=== PATIENT | female | born 1955 | race African-American/Black ===

== ENCOUNTER → 2017-01-17 | Outpatient (CLI) | payer MEDICARE, OTHER ==
[~2017-01-17] MED LIST: ALLO300T2 PO; AMLO10TA55 PO; ASPI-825 PO; FLUT16H NASAL; LORA-702 PO; METF1000 PO; RANI150T7 PO; SIMV10TA6 PO; SITA100 PO; SPIR25TA PO; VITA80008 PO; VITRON-C PO
== END | disposition home or self-care (01) ==
LOC: RADPV 14:11
PROVIDERS: ATTEND Legal Medicine
DX: M17.11 Unilateral primary osteoarthritis, right knee (principal)

== ENCOUNTER 2017-03-12 13:32 | Emergency (ER) | payer MEDICARE, OTHER ==
[~2017-03-12] VITALS: Ht 154.9 cm; Wt 95.5 kg
[2017-03-12 13:51] LABS: GLUCOSE,POINT OF CARE 81 MG/DL (70-110)
[2017-03-12] MEDS ORDERED: METF500T4 PO (14:38)
[2017-03-12] MEDS ORDERED: SIMV-261 PO (14:38)
[2017-03-12] MEDS ORDERED: ACETAMINOPHEN 325 MG TABLET PO ONE (14:45)
[2017-03-12 15:40] VITALS: BP 128/80
== END 2017-03-12 16:13 | disposition home or self-care (01) ==
LOC: EMS 13:34
DX: J40 Bronchitis, not specified as acute or chronic (principal); H92.03 Otalgia, bilateral; E11.9 Type 2 diabetes mellitus without complications; I10 Essential (primary) hypertension; K21.9 Gastro-esophageal reflux disease without esophagitis; Z88.1 Allergy status to other antibiotic agents; Z79.82 Long term (current) use of aspirin; Z87.891 Personal history of nicotine dependence
CPT/HCPCS: 71020; 82962; 99284

== ENCOUNTER 2017-04-11 20:46 | Emergency (ER) | payer MEDICARE, OTHER ==
[~2017-04-11] VITALS: Ht 154.9 cm; Wt 86.0 kg
[~2017-04-11 20:46] MED LIST changes: +METF500T4 PO; +SIMV-261 PO; -SIMV10TA6 PO
[2017-04-11 21:22] LABS: GLUCOSE,POINT OF CARE 141 MG/DL (70-110)
[2017-04-11] MEDS ORDERED: MORPHINE SULFATE 4 MG/ML SYRINGE IM ONE (22:15)
[2017-04-11] MEDS ORDERED: METHOCARBAMOL 500 MG TABLET PO ONE (22:15)
[2017-04-11 22:36] VITALS: BP 126/74
== END 2017-04-11 23:01 | disposition home or self-care (01) ==
LOC: EMS 20:47
DX: S29.012A Strain of muscle and tendon of back wall of thorax, initial encounter (principal); E11.9 Type 2 diabetes mellitus without complications; I10 Essential (primary) hypertension; K21.9 Gastro-esophageal reflux disease without esophagitis; Z88.2 Allergy status to sulfonamides; Z79.82 Long term (current) use of aspirin; X58.XXXA Exposure to other specified factors, initial encounter; Y93.89 Activity, other specified; Y92.89 Other specified places as the place of occurrence of the external cause; Y99.8 Other external cause status
CPT/HCPCS: 82962; 84703; 96372; 99283; J2270

== ENCOUNTER 2017-05-09 01:58 | Emergency (ER) | payer MEDICARE, OTHER ==
[~2017-05-09] VITALS: Ht 154.9 cm; Wt 85.0 kg
[~2017-05-09 01:58] MED LIST changes: -METF500T4 PO
[2017-05-09 02:07] VITALS: BP 145/84
[2017-05-09 02:17] LABS: GLUCOSE,POINT OF CARE 142 MG/DL (70-110)
[2017-05-09] MEDS ORDERED: DiphenhydrAMINE HCL 50 MG CAPSULE PO ONE (04:00)
== END 2017-05-09 04:11 | disposition home or self-care (01) ==
LOC: EMS 01:59
DX: S80.861A Insect bite (nonvenomous), right lower leg, initial encounter (principal); S80.862A Insect bite (nonvenomous), left lower leg, initial encounter; E11.9 Type 2 diabetes mellitus without complications; I10 Essential (primary) hypertension; K21.9 Gastro-esophageal reflux disease without esophagitis; Z87.891 Personal history of nicotine dependence; Z88.1 Allergy status to other antibiotic agents; W57.XXXA Bitten or stung by nonvenomous insect and other nonvenomous arthropods, initial encounter; Y93.89 Activity, other specified; Y92.89 Other specified places as the place of occurrence of the external cause; Y99.8 Other external cause status
CPT/HCPCS: 82962; 99282

== ENCOUNTER 2017-06-03 14:32 | Emergency (ER) | payer MEDICARE, OTHER ==
[~2017-06-03] VITALS: Ht 154.9 cm; Wt 85.0 kg
[~2017-06-03 14:32] MED LIST changes: +BRIM5DRO10 OU; +LATA2.5D2 OU
[2017-06-03] MEDS ORDERED: PRED20 PO (14:45)
[2017-06-03] MEDS ORDERED: DIPH12.540 PO (14:45)
[2017-06-03] MEDS ORDERED: DIPH25 PO (15:35)
[2017-06-03] MEDS ORDERED: DiphenhydrAMINE HCL 50 MG/ML VIAL IM ONE (15:45)
[2017-06-03 16:47] VITALS: BP 129/75
== END 2017-06-03 16:49 | disposition home or self-care (01) ==
LOC: EMS 14:33
DX: E11.9 Type 2 diabetes mellitus without complications (principal); K21.9 Gastro-esophageal reflux disease without esophagitis; I10 Essential (primary) hypertension; T78.49XA Other allergy, initial encounter; X58.XXXA Exposure to other specified factors, initial encounter; Z87.891 Personal history of nicotine dependence; Z79.82 Long term (current) use of aspirin; Z88.2 Allergy status to sulfonamides
CPT/HCPCS: 96372; 99283; J1200

== ENCOUNTER → 2017-07-23 | Outpatient (CLI) | payer MEDICARE, OTHER ==
[~2017-07-23] MED LIST changes: +DIPH25 PO; +PRED20 PO
== END | disposition home or self-care (01) ==
LOC: RADPV 09:08
PROVIDERS: ATTEND Legal Medicine
DX: M76.61 Achilles tendinitis, right leg (principal)

== ENCOUNTER → 2018-04-29 | Outpatient (CLI) | payer MEDICARE, OTHER | END | disposition home or self-care (01) | LOC: RADPV 08:00 | PROVIDERS: ATTEND Legal Medicine | DX: N83.201 Unspecified ovarian cyst, right side (principal); Z90.710 Acquired absence of both cervix and uterus; I10 Essential (primary) hypertension; E11.9 Type 2 diabetes mellitus without complications; K21.9 Gastro-esophageal reflux disease without esophagitis; Z79.82 Long term (current) use of aspirin; Z87.891 Personal history of nicotine dependence | CPT/HCPCS: 76700; 76856 ==

== ENCOUNTER 2018-12-19 23:00 | Emergency (ER) | payer MEDICARE, OTHER ==
[~2018-12-19] VITALS: Ht 154.9 cm; Wt 82.7 kg
[2018-12-19 23:18] LABS: GLUCOSE,POINT OF CARE 113 MG/DL (70-110)
[2018-12-19] MEDS ORDERED: SPIR50 PO (23:21)
[2018-12-20] MEDS ORDERED: IBUPROFEN 600 MG TABLET PO ONE (05:45)
[2018-12-20 06:39] VITALS: BP 124/86
== END 2018-12-20 06:47 | disposition home or self-care (01) ==
LOC: EMS 23:01
DX: S80.02XA Contusion of left knee, initial encounter (principal); E11.9 Type 2 diabetes mellitus without complications; I10 Essential (primary) hypertension; K21.9 Gastro-esophageal reflux disease without esophagitis; E78.00 Pure hypercholesterolemia, unspecified; Z87.891 Personal history of nicotine dependence; Z90.710 Acquired absence of both cervix and uterus; Z88.2 Allergy status to sulfonamides; Z79.84 Long term (current) use of oral hypoglycemic drugs; Z79.82 Long term (current) use of aspirin; W01.0XXA Fall on same level from slipping, tripping and stumbling without subsequent striking against object, initial encounter; Y93.89 Activity, other specified; Y92.89 Other specified places as the place of occurrence of the external cause; Y99.8 Other external cause status
CPT/HCPCS: 29530

== ENCOUNTER 2019-01-07 08:29 | Emergency (ER) | payer MEDICARE, OTHER ==
[~2019-01-07 08:29] MED LIST changes: -DIPH25 PO; -LORA-702 PO; -PRED20 PO; -SPIR25TA PO; +SPIR50 PO; -VITA80008 PO; -VITRON-C PO
== END 2019-01-07 08:42 | disposition left against medical advice (07) ==
LOC: EMS 08:32
DX: Z53.21 Procedure and treatment not carried out due to patient leaving prior to being seen by health care provider (principal)

== ENCOUNTER 2019-04-13 04:21 | Emergency (ER) | payer MEDICARE, OTHER ==
[~2019-04-13] VITALS: Ht 157.5 cm; Wt 81.8 kg
[2019-04-13] MEDS ORDERED: IPRAHFA IH (04:33)
[2019-04-13] MEDS ORDERED: ALBU8HFA NEB (04:33)
[2019-04-13 04:40] LABS: GLUCOSE,POINT OF CARE 108 MG/DL (70-110)
[2019-04-13] MEDS ORDERED: ACETAMINOPHEN 325 MG TABLET PO ONE (05:15)
[2019-04-13 05:55] VITALS: BP 128/69
== END 2019-04-13 06:02 | disposition home or self-care (01) ==
LOC: EMS 04:24
DX: S90.122A Contusion of left lesser toe(s) without damage to nail, initial encounter (principal); E11.9 Type 2 diabetes mellitus without complications; K21.9 Gastro-esophageal reflux disease without esophagitis; E78.00 Pure hypercholesterolemia, unspecified; I10 Essential (primary) hypertension; Z90.710 Acquired absence of both cervix and uterus; Z77.22 Contact with and (suspected) exposure to environmental tobacco smoke (acute) (chronic); Z79.84 Long term (current) use of oral hypoglycemic drugs; Z88.2 Allergy status to sulfonamides; Z79.82 Long term (current) use of aspirin; W22.8XXA Striking against or struck by other objects, initial encounter; Y93.89 Activity, other specified; Y92.89 Other specified places as the place of occurrence of the external cause; Y99.8 Other external cause status

== ENCOUNTER 2019-05-19 10:11 | Emergency (ER) | payer MEDICARE, OTHER ==
[~2019-05-19] VITALS: Ht 154.9 cm; Wt 81.8 kg
[~2019-05-19 10:11] MED LIST changes: +ALBU8HFA NEB; +IPRAHFA IH; -RANI150T7 PO
[2019-05-19 10:55] LABS: GLUCOSE,POINT OF CARE 187 MG/DL (70-110)
[2019-05-19 11:59] VITALS: BP 120/63
[2019-05-19] MEDS ORDERED: HYDROCODONE/ACETAMINOPHEN 5-325 MG TABLET PO ONE (12:00)
[2019-05-19] MEDS ORDERED: TraMADol HCL 50 MG TABLET PO ONE (12:15)
== END 2019-05-19 13:10 | disposition home or self-care (01) ==
LOC: EMS 10:13
DX: S76.312A Strain of muscle, fascia and tendon of the posterior muscle group at thigh level, left thigh, initial encounter (principal); I10 Essential (primary) hypertension; E78.00 Pure hypercholesterolemia, unspecified; E11.9 Type 2 diabetes mellitus without complications; K21.9 Gastro-esophageal reflux disease without esophagitis; Z87.891 Personal history of nicotine dependence; Z88.2 Allergy status to sulfonamides; Z79.82 Long term (current) use of aspirin; Z79.84 Long term (current) use of oral hypoglycemic drugs; Z79.899 Other long term (current) drug therapy; X50.9XXA Other and unspecified overexertion or strenuous movements or postures, initial encounter; Y93.89 Activity, other specified; Y92.89 Other specified places as the place of occurrence of the external cause; Y99.8 Other external cause status

== ENCOUNTER 2020-05-19 19:25 | Emergency (ER) | payer MEDICARE, OTHER ==
[~2020-05-19] VITALS: Ht 157.5 cm; Wt 80.9 kg
[2020-05-19] MEDS ORDERED: IPRAHFA IH (19:38)
[2020-05-19] MEDS ORDERED: LOSA50TA37 PO (19:38)
[2020-05-19 20:42] LABS: BASOPHILS % (AUTO) 0.9 % (0.0-2.0); EOSINOPHILS % (AUTO) 0.8 % (1.0-6.0); HEMATOCRIT 31.8 % (36-46); LYMPHOCYTES # (AUTO) 2.7 K/uL (1.0-4.8); LYMPHOCYTES % (AUTO) 18.7 % (22.0-44.0); MEAN CORPUSCULAR HEMOGLOBIN 27.4 pg (26.0-34.0); MEAN CORPUSCULAR HGB CONC 31.4 G/dL (31.0-37.0); MEAN CORPUSCULAR VOLUME 87 fL (80-100); MONOCYTES # (AUTO) 0.9 K/uL (0.1-1.0); MONOCYTES % (AUTO) 6.3 % (2.0-9.0); NEUTROPHILS # (AUTO) 10.7 K/uL (1.8-7.7); NEUTROPHILS % (AUTO) 73.3 % (40.0-70.0); PLATELET COUNT (AUTO) 327 K/uL (150-450); RED BLOOD CELL COUNT(AUTO) 3.66 MIL/uL (4.00-5.20); RED CELL DISTRIBUTION WIDTH 17.7 % (11.5-14.5)
[2020-05-19 21:01] LABS: CALCIUM, TOTAL 9.1 mg/dL (8.8-10.5); CREATININE 1.77 mg/dL (0.60-1.30); POTASSIUM 4.8 mmol/L (3.5-5.1)
[2020-05-19 21:05] LABS: INR 1.1 (0.9-1.1); PROTHROMBIN TIME 11.4 SEC (9.4-11.6)
[2020-05-19 21:27] LABS: ALBUMIN 3.3 g/dL (3.4-5.0); BILIRUBIN,TOTAL 0.2 mg/dL (0.1-1.0)
[2020-05-19 21:41] LABS: APPEARANCE,URINE CLEAR (CLEAR); BILIRUBIN,URINE NEGATIVE (NEGATIVE); GLUCOSE, URINE (UA) NEGATIVE (NEGATIVE); KETONES,URINE NEGATIVE (NEGATIVE); LEUKOCYTE ESTERASE ,URINE NEGATIVE (NEGATIVE); NITRATE,URINE NEGATIVE (NEGATIVE); OCCULT BLOOD,URINE NEGATIVE (NEGATIVE); PROTEIN,URINE NEGATIVE (NEGATIVE); UROBILINOGEN,URINE 0.2 mg/dL (<=1.0)
[2020-05-19] MEDS ORDERED: TraMADol HCL 50 MG TABLET PO ONE (22:00)
[2020-05-19 22:18] VITALS: BP 129/62
== END 2020-05-19 22:45 | disposition home or self-care (01) ==
LOC: EMS 19:25
DX: M25.561 Pain in right knee (principal); M25.571 Pain in right ankle and joints of right foot; R55 Syncope and collapse; R42 Dizziness and giddiness; E11.9 Type 2 diabetes mellitus without complications; K21.9 Gastro-esophageal reflux disease without esophagitis; E78.00 Pure hypercholesterolemia, unspecified; I10 Essential (primary) hypertension; F17.210 Nicotine dependence, cigarettes, uncomplicated; Z79.82 Long term (current) use of aspirin; Z79.84 Long term (current) use of oral hypoglycemic drugs; Z88.1 Allergy status to other antibiotic agents
CPT/HCPCS: 29530; 70450; 93005; 36415-L1; 36415-TC; 71045-TC; 81003-TC

== ENCOUNTER → 2021-02-23 | Outpatient (CLI) | payer MEDICARE, OTHER ==
[~2021-02-23] MED LIST changes: +LATA2.5D14 OU; -LATA2.5D2 OU; +LOSA50TA37 PO
== END | disposition home or self-care (01) ==
LOC: LABPV 15:19
PROVIDERS: ATTEND Legal Medicine
DX: R29.890 Loss of height (principal); R05 Cough; M54.2 Cervicalgia; M47.812 Spondylosis without myelopathy or radiculopathy, cervical region
CPT/HCPCS: 71046; 72040

== ENCOUNTER 2022-02-13 15:28 | Emergency (ER) | payer MEDICARE, OTHER ==
[~2022-02-13] VITALS: Ht 162.6 cm; Wt 68.2 kg
[~2022-02-13 15:28] MED LIST changes: +LOSA-382 PO; -LOSA50TA37 PO; -SPIR50 PO; +SPIR50TA27 PO
[2022-02-13] MEDS ORDERED: METF-446 PO (19:11)
[2022-02-13] MEDS ORDERED: ASPI-1444 PO (19:11)
[2022-02-13] MEDS ORDERED: LIDOCAINE 5% TRANSDERMAL PATCH TD ONE (19:15)
[2022-02-13 19:53] LABS: BASOPHILS % (AUTO) 0.8 % (0.0-2.0); EOSINOPHILS % (AUTO) 1.4 % (1.0-6.0); HEMATOCRIT 35.1 % (36-46); HEMOGLOBIN 11.1 g/dL (12.0-16.0); LYMPHOCYTES # (AUTO) 2.6 K/uL (1.0-4.8); LYMPHOCYTES % (AUTO) 22.6 % (22.0-44.0); MEAN CORPUSCULAR HEMOGLOBIN 28.4 pg (26.0-34.0); MEAN CORPUSCULAR HGB CONC 31.6 G/dL (31.0-37.0); MEAN CORPUSCULAR VOLUME 90 fL (80-100); MONOCYTES # (AUTO) 0.5 K/uL (0.1-1.0); MONOCYTES % (AUTO) 4.7 % (2.0-9.0); NEUTROPHILS % (AUTO) 70.5 % (40.0-70.0); PLATELET COUNT (AUTO) 373 K/uL (150-450); RED CELL DISTRIBUTION WIDTH 17.2 % (11.5-14.5)
[2022-02-13 19:54] LABS: APPEARANCE,URINE CLEAR (CLEAR); BILIRUBIN,URINE NEGATIVE (NEGATIVE); GLUCOSE, URINE (UA) NEGATIVE (NEGATIVE); KETONES,URINE TRACE mg/dL (NEGATIVE); LEUKOCYTE ESTERASE ,URINE TRACE (NEGATIVE); NITRATE,URINE NEGATIVE (NEGATIVE); OCCULT BLOOD,URINE NEGATIVE (NEGATIVE); PROTEIN,URINE NEGATIVE (NEGATIVE); SPECIFIC GRAVITIY, URINE 1.026 (1.003-1.030); UROBILINOGEN,URINE <=1.0 mg/dL (<=1.0)
[2022-02-13 20:00] LABS: CREATININE 1.43 mg/dL (0.60-1.30); POTASSIUM 5.7 mmol/L (3.5-5.1)
[2022-02-13 20:06] LABS: ALBUMIN 3.5 g/dL (3.4-5.0); BILIRUBIN,TOTAL 0.3 mg/dL (0.1-1.0); TOTAL PROTEIN, SERUM 8.3 g/dL (6.4-8.2)
[2022-02-13 20:08] LABS: BACTERIA,URINE Rare /HPF (None Seen); RBC,URINE 0-2 /HPF (0-2); SQUAMOUS EPITHELIAL CELL,UR Few /LPF (None Seen)
[2022-02-13] MEDS ORDERED: HYDROCODONE/ACETAMINOPHEN 5-325 MG TABLET PO ONE (20:15)
[2022-02-13] MEDS ORDERED: SODIUM CHLORIDE 0.9% 1,000 ML IV ONE (20:45)
[2022-02-13] MEDS ORDERED: SODIUM POLYSTYRENE SULFONATE 15 GM/60 ML SUSPENSION BOTTLE PO ONE (20:45)
[2022-02-13 22:18] LABS: COVID AG,FIA SOURCE NASAL SWAB
[2022-02-13] MEDS ORDERED: SODIUM ZIRCONIUM CYCLOSILICATE 5 GM POWDER PACKET PO ONE (22:30)
[2022-02-13 22:55] VITALS: BP 131/75
[2022-02-13] MEDS ORDERED: HYDR-4723 PO (23:12)
== END 2022-02-13 23:07 | disposition home or self-care (01) ==
LOC: EMS 15:33
DX: E87.5 Hyperkalemia (principal); E86.0 Dehydration; M54.50 Low back pain, unspecified; R10.31 Right lower quadrant pain; M25.551 Pain in right hip; E11.9 Type 2 diabetes mellitus without complications; E78.00 Pure hypercholesterolemia, unspecified; I10 Essential (primary) hypertension; M10.9 Gout, unspecified; Z87.898 Personal history of other specified conditions; Z87.19 Personal history of other diseases of the digestive system; Z90.710 Acquired absence of both cervix and uterus; Z88.2 Allergy status to sulfonamides; Z20.822 Contact with and (suspected) exposure to COVID-19; Z87.39 Personal history of other diseases of the musculoskeletal system and connective tissue
CPT/HCPCS: 36415; 74176; 80053; 81001; 82962; 85025; 87426; 93005; 96360; 99285; J7030; Q9967; 99284

== ENCOUNTER 2022-07-16 19:16 | Emergency (ER) | payer MEDICARE, OTHER ==
[~2022-07-16] VITALS: Ht 154.9 cm; Wt 80.0 kg
[~2022-07-16 19:16] MED LIST changes: -ALBU8HFA NEB; +ASPI-1444 PO; -ASPI-825 PO; +HYDR-4723 PO; +METF-446 PO; -METF1000 PO
[2022-07-16 21:00] VITALS: BP 145/89
[2022-07-16] MEDS ORDERED: ACETAMINOPHEN 500 MG TABLET PO ONE (21:00)
[2022-07-16] MEDS ORDERED: AMOX TR/POT CLAV 875 MG/125 MG TABLET PO ONE (21:00)
[2022-07-16] MEDS ORDERED: AMOX1TAB16 PO (21:09)
[2022-07-16] MEDS ORDERED: ACET-3385 PO (21:09)
== END 2022-07-16 21:28 | disposition home or self-care (01) ==
LOC: EMS 19:16
DX: K08.89 Other specified disorders of teeth and supporting structures (principal); E11.9 Type 2 diabetes mellitus without complications; K21.9 Gastro-esophageal reflux disease without esophagitis; E78.00 Pure hypercholesterolemia, unspecified; I10 Essential (primary) hypertension; F17.210 Nicotine dependence, cigarettes, uncomplicated; F17.200 Nicotine dependence, unspecified, uncomplicated; Z90.710 Acquired absence of both cervix and uterus
CPT/HCPCS: 99283

== ENCOUNTER → 2022-10-16 | Outpatient (CLI) | payer MEDICARE, OTHER ==
[~2022-10-16] MED LIST changes: +ACET-3385 PO; +AMOX1TAB16 PO; -FLUT16H NASAL; +FLUT16SP NASAL
== END | disposition home or self-care (01) ==
LOC: RADMN 14:33
PROVIDERS: ATTEND Legal Medicine
DX: M17.12 Unilateral primary osteoarthritis, left knee (principal); M25.762 Osteophyte, left knee; M76.52 Patellar tendinitis, left knee
CPT/HCPCS: 73562-TC

== ENCOUNTER → 2022-12-13 | Outpatient (CLI) | payer MEDICARE, OTHER | END | disposition home or self-care (01) | LOC: RADPV 11:40 | PROVIDERS: ATTEND Legal Medicine | DX: M17.11 Unilateral primary osteoarthritis, right knee (principal); M25.761 Osteophyte, right knee; M76.51 Patellar tendinitis, right knee | CPT/HCPCS: 73562-TC ==

== ENCOUNTER 2023-02-06 11:45 | Emergency (ER) | payer MEDICARE, OTHER ==
[~2023-02-06] VITALS: Ht 154.9 cm; Wt 85.0 kg
[2023-02-06] MEDS ORDERED: CYCLOBENZAPRINE HCL 10 MG TABLET PO ONE (14:15)
[2023-02-06] MEDS ORDERED: KETOROLAC TROMETHAMINE 30 MG/ML VIAL IM ONE (14:15)
[2023-02-06] MEDS ORDERED: LIDOCAINE 5% TRANSDERMAL PATCH TD ONE (14:15)
[2023-02-06] MEDS ORDERED: IBUP-1492 PO (14:55)
[2023-02-06] MEDS ORDERED: CYCL-448 PO (14:55)
[2023-02-06] MEDS ORDERED: LIDO700A15 TP (14:55)
[2023-02-06 15:02] VITALS: BP 129/74
== END 2023-02-06 15:04 | disposition home or self-care (01) ==
LOC: EMS 11:45
DX: M54.50 Low back pain, unspecified (principal); E11.9 Type 2 diabetes mellitus without complications; E78.00 Pure hypercholesterolemia, unspecified; I10 Essential (primary) hypertension; Z90.710 Acquired absence of both cervix and uterus; Z87.891 Personal history of nicotine dependence; Z88.2 Allergy status to sulfonamides
CPT/HCPCS: 99283; 82962; 96372; J1885

== ENCOUNTER 2023-05-04 11:25 | Emergency (ER) | payer MEDICARE, OTHER ==
[~2023-05-04] VITALS: Ht 162.6 cm; Wt 87.0 kg
[~2023-05-04 11:25] MED LIST changes: -ACET-3385 PO; -AMOX1TAB16 PO; +CYCL-448 PO; -HYDR-4723 PO; +IBUP-1492 PO; +LIDO700A15 TP; -LOSA-382 PO; -SPIR50TA27 PO
[2023-05-04 11:31] VITALS: TEMP 100.2
[2023-05-04] MEDS ORDERED: ASCO500 PO (11:38)
[2023-05-04] MEDS ORDERED: ALLO-45 PO (11:38)
[2023-05-04] MEDS ORDERED: RIFAB150 PO (11:38)
[2023-05-04] MEDS ORDERED: METH-812 PO (11:38)
[2023-05-04] MEDS ORDERED: GABA-1216 PO (11:38)
[2023-05-04] MEDS ORDERED: OMEP20 PO (11:38)
[2023-05-04] MEDS ORDERED: VITA100014 PO (11:38)
[2023-05-04] MEDS ORDERED: AMOX500T2 PO (11:38)
[2023-05-04] MEDS ORDERED: KETOROLAC TROMETHAMINE 30 MG/ML VIAL IVP ONE (12:15)
[2023-05-04] MEDS ORDERED: SODIUM CHLORIDE 0.9% 1,000 ML IV ONE (12:15)
[2023-05-04] MEDS ORDERED: ACETAMINOPHEN 500 MG TABLET PO ONE (12:15)
[2023-05-04 12:37] LABS: COVID AG,FIA SOURCE NASOPHARYNGEAL
[2023-05-04 12:37] LABS: BASOPHILS % (AUTO) 0.7 % (0.0-2.0); EOSINOPHILS % (AUTO) 0.5 % (1.0-6.0); HEMATOCRIT 37.1 % (36-46); HEMOGLOBIN 11.9 g/dL (12.0-16.0); LYMPHOCYTES # (AUTO) 0.7 K/uL (1.0-4.8); MEAN CORPUSCULAR HEMOGLOBIN 27.5 pg (26.0-34.0); MEAN CORPUSCULAR HGB CONC 32.2 G/dL (31.0-37.0); MEAN CORPUSCULAR VOLUME 86 fL (80-100); MONOCYTES # (AUTO) 0.6 K/uL (0.1-1.0); MONOCYTES % (AUTO) 11.5 % (2.0-9.0); NEUTROPHILS # (AUTO) 3.8 K/uL (1.8-7.7); NEUTROPHILS % (AUTO) 74.3 % (40.0-70.0); PLATELET COUNT (AUTO) 311 K/uL (150-450); RED BLOOD CELL COUNT(AUTO) 4.33 MIL/uL (4.00-5.20); RED CELL DISTRIBUTION WIDTH 18.5 % (11.5-14.5)
[2023-05-04 12:46] LABS: CALCIUM, TOTAL 9.2 mg/dL (8.8-10.5); CREATININE 1.53 mg/dL (0.60-1.30); POTASSIUM 4.7 mmol/L (3.5-5.1)
[2023-05-04 12:56] LABS: INFLUENZA TYPE A NEGATIVE FOR TYPE A (NEGATIVE); INFLUENZA TYPE B NEGATIVE FOR TYPE B (NEGATIVE)
[2023-05-04 13:11] LABS: ALBUMIN 3.7 g/dL (3.4-5.0); BILIRUBIN,TOTAL 0.2 mg/dL (0.1-1.0); TOTAL PROTEIN, SERUM 8.5 g/dL (6.4-8.2)
[2023-05-04 14:05] LABS: APPEARANCE,URINE CLEAR (CLEAR); BILIRUBIN,URINE NEGATIVE (NEGATIVE); GLUCOSE, URINE (UA) NEGATIVE (NEGATIVE); KETONES,URINE NEGATIVE (NEGATIVE); LEUKOCYTE ESTERASE ,URINE NEGATIVE (NEGATIVE); NITRATE,URINE NEGATIVE (NEGATIVE); OCCULT BLOOD,URINE NEGATIVE (NEGATIVE); PH,URINE 5.5 (5.0-8.0); PROTEIN,URINE 30-70 mg/dL (NEGATIVE); SPECIFIC GRAVITIY, URINE 1.025 (1.003-1.030); UROBILINOGEN,URINE <=1.0 mg/dL (<=1.0)
[2023-05-04 14:12] LABS: BACTERIA,URINE None Seen /HPF (None Seen); RBC,URINE None Seen /HPF (0-2); SQUAMOUS EPITHELIAL CELL,UR Few /LPF (None Seen); TRANSITIONAL EPI CELLS,URINE Rare /LPF (None Seen); WBC,URINE None Seen /HPF (0-5)
[2023-05-04 15:00] VITALS: BP 133/68; PULSE 89; RESP 16
== END 2023-05-04 15:56 | disposition home or self-care (01) ==
LOC: EMS 11:27
DX: M79.10 Myalgia, unspecified site (principal); R11.0 Nausea; R50.9 Fever, unspecified; G25.81 Restless legs syndrome; J45.909 Unspecified asthma, uncomplicated; E11.9 Type 2 diabetes mellitus without complications; E78.00 Pure hypercholesterolemia, unspecified; K21.9 Gastro-esophageal reflux disease without esophagitis; I10 Essential (primary) hypertension; M10.9 Gout, unspecified; Z87.891 Personal history of nicotine dependence; Z90.710 Acquired absence of both cervix and uterus; Z88.2 Allergy status to sulfonamides; Z20.822 Contact with and (suspected) exposure to COVID-19
CPT/HCPCS: 99283; 96374; 96361; 87426; 80053; 81001; 82550; 82962; 85025; 87804; 36415; J1885; J7030

== ENCOUNTER 2023-07-06 14:33 | Emergency (ER) | payer MEDICARE, OTHER ==
[~2023-07-06] VITALS: Ht 154.9 cm; Wt 83.2 kg
[~2023-07-06 14:33] MED LIST changes: +ALLO-45 PO; -ALLO300T2 PO; +AMOX500T2 PO; +ASCO500 PO; -CYCL-448 PO; +GABA-1216 PO; -IBUP-1492 PO; -LIDO700A15 TP; +METH-812 PO; +OMEP20 PO; +RIFAB150 PO; +VITA100014 PO
[2023-07-06 14:38] VITALS: TEMP 98.4
[2023-07-06 15:04] VITALS: BP 125/62; PULSE 98; RESP 18
[2023-07-06] MEDS ORDERED: HYDROCODONE/ACETAMINOPHEN 5-325 MG TABLET PO ONE (16:15)
[2023-07-06] MEDS ORDERED: KETOROLAC TROMETHAMINE 60 MG/2 ML VIAL IM ONE (16:15)
[2023-07-06] MEDS ORDERED: HYDR-4072 PO (16:38)
[2023-07-06] MEDS ORDERED: CYCL-448 PO (16:38)
[2023-07-06] MEDS ORDERED: POLY238P PO (16:38)
== END 2023-07-06 16:55 | disposition home or self-care (01) ==
LOC: EMS 14:37
DX: S13.4XXA Sprain of ligaments of cervical spine, initial encounter (principal); M62.838 Other muscle spasm; J45.909 Unspecified asthma, uncomplicated; E11.9 Type 2 diabetes mellitus without complications; E78.00 Pure hypercholesterolemia, unspecified; I10 Essential (primary) hypertension; Z88.2 Allergy status to sulfonamides; Z98.51 Tubal ligation status; Z90.710 Acquired absence of both cervix and uterus; X58.XXXA Exposure to other specified factors, initial encounter; Y93.89 Activity, other specified; Y92.89 Other specified places as the place of occurrence of the external cause; Y99.8 Other external cause status
CPT/HCPCS: 99283; 82962; 96372; J1885

== ENCOUNTER 2023-11-22 15:02 | Emergency (ER) | payer MEDICARE, OTHER ==
[~2023-11-22] VITALS: Ht 154.9 cm; Wt 81.8 kg
[~2023-11-22 15:02] MED LIST changes: -AMOX500T2 PO; +CYCL-448 PO; +HYDR-4072 PO; +POLY238P PO
[2023-11-22 15:11] VITALS: TEMP 98.4
[2023-11-22 16:54] VITALS: BP 138/66; PULSE 93; RESP 18
== END 2023-11-22 17:35 | disposition home or self-care (01) ==
LOC: EMS 15:11
DX: R20.2 Paresthesia of skin (principal); J45.909 Unspecified asthma, uncomplicated; E11.9 Type 2 diabetes mellitus without complications; E78.00 Pure hypercholesterolemia, unspecified; I10 Essential (primary) hypertension; Z87.891 Personal history of nicotine dependence; Z90.49 Acquired absence of other specified parts of digestive tract; Z88.2 Allergy status to sulfonamides
CPT/HCPCS: 82962; 99282

== ENCOUNTER 2025-02-03 17:42 | Emergency (ER) | payer MEDICARE, OTHER ==
[~2025-02-03] VITALS: Ht 154.9 cm; Wt 79.1 kg
[~2025-02-03 17:42] MED LIST changes: -CYCL-448 PO; +OMEP-148 PO; -OMEP20 PO; -POLY238P PO; -RIFAB150 PO
[2025-02-03 17:45] VITALS: TEMP 98.6
[2025-02-03 22:55] LABS: BASOPHILS % (AUTO) 0.6 % (0.0-2.0); EOSINOPHILS % (AUTO) 1.1 % (1.0-6.0); HEMATOCRIT 33.1 % (36-46); HEMOGLOBIN 10.6 g/dL (12.0-16.0); LYMPHOCYTES # (AUTO) 2.7 K/uL (1.0-4.8); LYMPHOCYTES % (AUTO) 21.4 % (22.0-44.0); MEAN CORPUSCULAR HEMOGLOBIN 25.9 pg (26.0-34.0); MEAN CORPUSCULAR HGB CONC 31.9 G/dL (31.0-37.0); MEAN CORPUSCULAR VOLUME 81 fL (80-100); MONOCYTES # (AUTO) 0.8 K/uL (0.1-1.0); MONOCYTES % (AUTO) 6.5 % (2.0-9.0); NEUTROPHILS # (AUTO) 8.8 K/uL (1.8-7.7); NEUTROPHILS % (AUTO) 70.4 % (40.0-70.0); PLATELET COUNT (AUTO) 363 K/uL (150-450); RED BLOOD CELL COUNT(AUTO) 4.07 MIL/uL (4.00-5.20); RED CELL DISTRIBUTION WIDTH 19.2 % (11.5-14.5); WHITE BLOOD COUNT (AUTO) 12.5 K/uL (4.5-11.0)
[2025-02-03] MEDS: ACETAMINOPHEN 500 MG TABLET PO ONE (23:02)
[2025-02-03] MEDS: LIDOCAINE 5% TRANSDERMAL PATCH TD ONE (23:03)
[2025-02-03 23:08] LABS: CALCIUM, TOTAL 9.9 mg/dL (8.8-10.5); CREATININE 1.47 mg/dL (0.60-1.30); POTASSIUM 4.7 mmol/L (3.5-5.1)
[2025-02-03 23:12] LABS: ALBUMIN 3.3 g/dL (3.4-5.0); BILIRUBIN,DIRECT 0.1 mg/dL (0.00-0.20); BILIRUBIN,TOTAL 0.4 mg/dL (0.1-1.0); TOTAL PROTEIN, SERUM 8.4 g/dL (6.4-8.2)
[2025-02-04 03:43] VITALS: BP 146/76; PULSE 85; RESP 17; O2SAT 96
== END 2025-02-04 06:23 | disposition home or self-care (01) ==
LOC: EMS 17:42
DX: S63.612A Unspecified sprain of right middle finger, initial encounter (principal); S30.1XXA Contusion of abdominal wall, initial encounter; J45.909 Unspecified asthma, uncomplicated; E78.00 Pure hypercholesterolemia, unspecified; M10.9 Gout, unspecified; I70.90 Unspecified atherosclerosis; J43.9 Emphysema, unspecified; K21.9 Gastro-esophageal reflux disease without esophagitis; E11.9 Type 2 diabetes mellitus without complications; I10 Essential (primary) hypertension; Z90.710 Acquired absence of both cervix and uterus; Z87.891 Personal history of nicotine dependence; Z79.82 Long term (current) use of aspirin; Z79.84 Long term (current) use of oral hypoglycemic drugs; Z88.2 Allergy status to sulfonamides; V49.9XXA Car occupant (driver) (passenger) injured in unspecified traffic accident, initial encounter; Y93.89 Activity, other specified; Y92.410 Unspecified street and highway as the place of occurrence of the external cause; Y99.8 Other external cause status
CPT/HCPCS: 70450; 71260; 72125; 72128; 72131; 72193; 74160; 80048; 80076; 82962; 83690; 85025; 99285

== ENCOUNTER 2025-05-24 11:43 | Emergency (ER) | payer MEDICARE, OTHER ==
[~2025-05-24] VITALS: Ht 154.9 cm; Wt 76.0 kg
[~2025-05-24 11:43] MED LIST changes: -FLUT16SP NASAL; -HYDR-4072 PO; -LATA2.5D14 OU; +LATA2.5D7 OU; -OMEP-148 PO
[2025-05-24 12:06] VITALS: BP 109/64; PULSE 86; RESP 18; TEMP 98.4; O2SAT 98
[2025-05-24 12:09] LABS: PLATELET COUNT (AUTO) 430 K/uL (150-450); RED BLOOD CELL COUNT(AUTO) 4.36 MIL/uL (4.00-5.20); RED CELL DISTRIBUTION WIDTH 18.3 % (11.5-14.5); WHITE BLOOD COUNT (AUTO) 8.1 K/uL (4.5-11.0)
[2025-05-24 12:20] LABS: CALCIUM, TOTAL 9.2 mg/dL (8.8-10.5); CREATININE 1.48 mg/dL (0.60-1.30); GLOMERULAR FILTR. RATE CALC 42 mL/min (>60); GLUCOSE,RANDOM 90 mg/dL (70-110); SODIUM SERUM 139 mmol/L (136-145); UREA NITROGEN, BLOOD 27 mg/dL (7-18)
[2025-05-24 12:24] LABS: ASPARTATE AMINOTRANSFERASE 19.0 U/L (15-37); CREATINE KINASE, TOTAL ONLY 54.0 U/L (26-192); TOTAL PROTEIN, SERUM 8.4 g/dL (6.4-8.2)
[2025-05-24 12:29] LABS: TROPONIN I-HIGH SENSITIVITY 5 ng/L (<51)
[2025-05-24] MEDS: MAG HYDROX/ALUMINUM HYD/SIMETH ES 30 ML SUSPENSION UDCUP PO ONE (12:30)
[2025-05-24 12:31] LABS: GLUCOMETER DEV NAME(LOC) ER.7; GLUCOSE,POINT OF CARE 87 MG/DL (70-110)
[2025-05-24] MEDS: FAMOTIDINE 20 MG TABLET PO ONE (12:31)
== END 2025-05-24 15:17 | disposition home or self-care (01) ==
LOC: EMS 12:09
DX: K21.9 Gastro-esophageal reflux disease without esophagitis (principal); R07.9 Chest pain, unspecified; R06.02 Shortness of breath; I10 Essential (primary) hypertension; E11.9 Type 2 diabetes mellitus without complications; J45.909 Unspecified asthma, uncomplicated; E78.00 Pure hypercholesterolemia, unspecified; M10.9 Gout, unspecified; Z79.82 Long term (current) use of aspirin; Z88.2 Allergy status to sulfonamides; Z79.84 Long term (current) use of oral hypoglycemic drugs; Z90.710 Acquired absence of both cervix and uterus; Z79.899 Other long term (current) drug therapy
CPT/HCPCS: 71045; 80048; 80076; 82550; 82962; 83880; 84484; 85025; 85610; 85730; 93005; 99285; 36415-L1; 36415-TC